=== PATIENT | female | born 1970 | race Caucasian/White ===

== ENCOUNTER 2017-11-04 17:36 | Emergency (ER) | payer BC, OTHER ==
[~2017-11-04] VITALS: Ht 172.7 cm; Wt 77.1 kg
[~2017-11-04 17:36] MED LIST: ACHD5005 PO; CYCL10TA9 PO; HYDR-757 PO; IBUP-1773 PO; KETO75CA PO; NAPR-243 PO; NAPR220T29 PO; TR5C15 TOP; TRAM50TA2 PO; [UNRECOGNIZED DRUG - OTHER] TP
--- NOTE | 2017-11-04 18:17 | ED GU-Female ---
General Chief Complaint: -Female Stated Complaint: MENSTRAL BLEEDING FOR 1 MONTH Source: patient Exam Limitations: no limitations History of Present Illness Date Seen by Provider: Nov 04, 2017 Time Seen by Provider: 17:57 Initial Comments Patient presents to ER by private conveyance with a chief complaint the past month now she has been on her period with moderate to heavy flow. She has known history of endometrial hyperplasia and a couple years ago Dr. Hopkins, [employer] did a endometrial ablation. She says things were doing much better until more recently in the last couple months she's been having a lot longer menstrual cycles. She says she is not having any chest pain or shortness of breath however she is having some pale colored skin, tingling a little bit of numbness in her fingers. She is afraid that her blood may be getting low. She did put on oral iron 8 tablets of ferrous sulfate daily but she is only taking about 3 tablets as this is all she can tolerate. Patient does not have any diarrhea, constipation or nausea and vomiting. She is using stool softeners. She has rescheduled her appointment with the [employer] for early next week on Wednesday and has plans to do some more blood work and ultrasound. Before her previous ablation her hemoglobin got down to 6.6 but she never received a transfusion of blood at that time. Allergies and Home Medications Allergies Coded Allergies: No Known Drug Allergies (Unverified , 08/28/10) Home Medications Hydrocodone Bit/Acetaminophen 1 Each Tablet, 1 EA PO Q4H PRN for MILD PAIN Prescribed by: KIRILL ALMONTE on 04/26/14 1023 Ibuprofen 600 Mg Tablet, 600 MG PO Q6H Prescribed by: KIRILL ALMONTE on 04/26/14 1023 Patient Home Medication List Home Medication List Reviewed: Yes Constitutional: No chills, No diaphoresis EENTM: No nose congestion, No throat pain, No throat swelling Respiratory: No short of breath, No wheezing Cardiovascular: No chest pain, No edema, No syncope, No vascular heart diseas Gastrointestinal: No abdominal pain, No constipation, No diarrhea, No nausea Genitourinary: denies discharge, denies dysuria : No Musculoskeletal: No back pain, No joint pain Skin: No pruritus, No rash Psychiatric/Neurological: Denies Headache, Denies Numbness, Denies Paresthesia Past Alfwqlz-Hepfxz-Oustct Hx Patient Social History Alcohol Use: Denies Use Recreational Drug Use: No Smoking Status: Never a Smoker Recent Foreign Travel: No Contact w/Someone Who Travel: No Reproductive System Hx Reproductive Disorders: Yes (DYSFUNCTIONAL BLEEDING, CYSTS) 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 Physical Exam Vital Signs Vital Signs - First Documented 11/04/17 18:00 Temp 97.2 Pulse 97 Resp 18 B/P (MAP) 131/74 (93) Pulse Ox 96 Capillary Refill : General Appearance: WD/WN, no apparent distress HEENT: PERRL/EOMI, TMs normal, pharynx normal Neck: supple, normal inspection Cardiovascular: normal peripheral pulses, regular rate, rhythm Respiratory: lungs clear, normal breath sounds, no respiratory distress, no accessory muscle use Gastrointestinal: normal bowel sounds, non tender, soft, no organomegaly Neurologic/Psychiatric: alert, oriented x 3 Skin: warm/dry, pallor Progress/Results/Core Measures Suspected Sepsis SIRS Temperature: Pulse: Respiratory Rate: Laboratory Tests 11/04/17 18:10: White Blood Count 5.2 Blood Pressure / Mean: Laboratory Tests 11/04/17 18:10: Creatinine 0.77, Platelet Count 274, Total Bilirubin 0.2 Results/Orders Lab Results Laboratory Tests Test 11/04/17 18:10 Range/Units White Blood Count 5.2 4.3-11.0 10^3/uL Red Blood Count 3.30 L 4.35-5.85 10^6/uL Hemoglobin 8.0 L 11.5-16.0 G/DL Hematocrit 27 L 35-52 % Mean Corpuscular Volume 82 80-99 FL Mean Corpuscular Hemoglobin 24 L 25-34 PG Mean Corpuscular Hemoglobin Concent 30 L 32-36 G/DL Red Cell Distribution Width 23.9 H 10.0-14.5 % Platelet Count 274 130-400 10^3/uL Mean Platelet Volume 10.0 7.4-10.4 FL Neutrophils (%) (Auto) 67 42-75 % Lymphocytes (%) (Auto) 25 12-44 % Monocytes (%) (Auto) 6 0-12 % Eosinophils (%) (Auto) 1 0-10 % Basophils (%) (Auto) 1 0-10 % Neutrophils # (Auto) 3.5 1.8-7.8 X 10^3 Lymphocytes # (Auto) 1.3 1.0-4.0 X 10^3 Monocytes # (Auto) 0.3 0.0-1.0 X 10^3 Eosinophils # (Auto) 0.1 0.0-0.3 10^3/uL Basophils # (Auto) 0.0 0.0-0.1 10^3/uL Sodium Level 137 135-145 MMOL/L Potassium Level 4.0 3.6-5.0 MMOL/L Chloride Level 108 H 98-107 MMOL/L Carbon Dioxide Level 18 L 21-32 MMOL/L Anion Gap 11 5-14 MMOL/L Blood Urea Nitrogen 12 7-18 MG/DL Creatinine 0.77 0.60-1.30 MG/DL Estimat Glomerular Filtration Rate > 60 BUN/Creatinine Ratio 16 Glucose Level 108 H 70-105 MG/DL Calcium Level 8.6 8.5-10.1 MG/DL Total Bilirubin 0.2 0.1-1.0 MG/DL Aspartate Amino Transf (AST/SGOT) 13 5-34 U/L Alanine Aminotransferase (ALT/SGPT) 22 0-55 U/L Alkaline Phosphatase 42 40-136 U/L Total Protein 6.3 L 6.4-8.2 GM/DL Albumin 4.2 3.2-4.5 GM/DL Serum Test, Qualitative NEGATIVE NEGATIVE My Orders Orders - ERNESTO MARTINS Cbc With Automated Diff (11/04/17 18:01) Comprehensive Metabolic Panel (11/04/17 18:01) Hcg,Qualitative Serum (11/04/17 18:01) Vital Signs/I&O Vital Sign - Last 12Hours 11/04/17 18:00 Temp 97.2 Pulse 97 Resp 18 B/P (MAP) 131/74 (93) Pulse Ox 96 Capillary Refill : Departure Impression Impression: Primary Impression: Abnormal uterine bleeding unrelated to menstrual cycle Disposition: HOME, SELF-CARE Condition: Stable Departure-Patient Inst. Decision time for Depature: 18:53 Referrals: ALIA BELLE (PCP) Primary Care Physician [facility] (Family) Primary Care Physician Patient Instructions: Heavy Periods (DC) Add. Discharge Instructions: If the bleeding becomes worse, he began to have chest pain, shortness of breath or other worrisome symptoms please return to the ER for further evaluation. However plan to follow-up at your scheduled appointment with Dr. Lonnie Archuleta for further evaluation and management. All discharge instructions reviewed with patient and/or family. Voiced understanding. Copy Copies To 1: RAMANA MCNAMARA TITUS J Nov 04, 2017 18:17
[2017-11-04 18:21] LABS: BASOPHILS % (AUTO) 1 % (0-10); EOSINOPHILS # (AUTO) 0.1 10^3/uL (0.0-0.3); EOSINOPHILS % (AUTO) 1 % (0-10); HEMATOCRIT 27 % (35-52); LYMPHOCYTES # (AUTO) 1.3 X 10^3 (1.0-4.0); LYMPHOCYTES % (AUTO) 25 % (12-44); MEAN CORPUSCULAR HEMOGLOBIN 24 PG (25-34); MEAN CORPUSCULAR HGB CONC 30 G/DL (32-36); MEAN CORPUSCULAR VOLUME 82 FL (80-99); MONOCYTES # (AUTO) 0.3 X 10^3 (0.0-1.0); MONOCYTES % (AUTO) 6 % (0-12); NEUTROPHILS # (AUTO) 3.5 X 10^3 (1.8-7.8); NEUTROPHILS % (AUTO) 67 % (42-75); PLATELET COUNT 274 10^3/uL (130-400); RED CELL DISTRIBUTION WIDTH 23.9 % (10.0-14.5); WHITE BLOOD COUNT 5.2 10^3/uL (4.3-11.0)
[2017-11-04 18:42] LABS: ALANINE AMINOTRANSFERASE 22 U/L (0-55); ALBUMIN 4.2 GM/DL (3.2-4.5); ALKALINE PHOSPHATASE 42 U/L (40-136); BILIRUBIN,TOTAL 0.2 MG/DL (0.1-1.0); BUN/CREATININE RATIO 16; CALCIUM 8.6 MG/DL (8.5-10.1); CARBON DIOXIDE 18 MMOL/L (21-32); CHLORIDE 108 MMOL/L (98-107); CREATININE SERUM 0.77 MG/DL (0.60-1.30); GFR ESTIMATED > 60; GLUCOSE 108 MG/DL (70-105); SODIUM 137 MMOL/L (135-145); TOTAL PROTEIN 6.3 GM/DL (6.4-8.2)
[2017-11-04 19:01] VITALS: BP 118/82
== END 2017-11-04 19:01 | disposition home or self-care (01) ==
LOC: EDUNIT# 17:36 → ER 17:37
DX: N93.9 Abnormal uterine and vaginal bleeding, unspecified (principal); Z87.448 Personal history of other diseases of urinary system
CPT/HCPCS: 36415; 80053; 84703; 85025; 99282

== ENCOUNTER 2017-11-17 12:54 | Outpatient (CLI) | payer BC ==
[~2017-11-17] VITALS: Ht 172.7 cm; Wt 80.3 kg
[2017-11-17 13:04] VITALS: BP 112/67
[2017-11-17] MEDS ORDERED: NITR100C PO (13:09)
[2017-11-17] MEDS ORDERED: DOCU-143 PO (13:29)
[2017-11-17] MEDS ORDERED: FERR-84 PO (13:29)
[2017-11-17] MEDS ORDERED: C250T PO (13:29)
== END 2017-11-17 13:20 | disposition home or self-care (01) ==
LOC: PREOP 12:54
PROVIDERS: ATTEND Obstetrics & Gynecology
DX: Z01.818 Encounter for other preprocedural examination (principal); Z11.2 Encounter for screening for other bacterial diseases; N93.8 Other specified abnormal uterine and vaginal bleeding; D25.9 Leiomyoma of uterus, unspecified; D64.9 Anemia, unspecified
CPT/HCPCS: 87081

== ENCOUNTER 2017-11-22 12:05 | Day surgery (SDC) | payer BC ==
[~2017-11-22] VITALS: Ht 172.7 cm; Wt 80.3 kg
[2017-11-22 12:05] VITALS: BP 131/98
[~2017-11-22 12:05] MED LIST changes: +C250T PO; +DOCU-143 PO; +FERR-84 PO; +NITR100C PO
[2017-11-22] MEDS ORDERED: ceFAZolin INJECTION 1,000 MG in NS (IVPB) 100 ML IV ONE (12:15)
--- NOTE | 2017-11-22 12:24 | Progress Note-Pre Operative ---
Pre-Operative Progress Note H&P Reviewed The H&P was reviewed, patient examined and no changes noted. Date Seen by Provider: Nov 22, 2017 Time Seen by Provider: 13:52 Date H&P Reviewed: Nov 22, 2017 Time H&P Reviewed: 13:52 Pre-Operative Diagnosis: DUB/menorrhagia DIMITRIOS JIMENEZ MD Nov 22, 2017 12:24 pm
--- NOTE | 2017-11-22 12:25 | Progress Note-Post Operative ---
Post-Operative Progess Note Surgeon (s)/Special Education Classroom Aide (s) Surgeon DIMITRIOS JIMENEZ MD Special Education Classroom Aide: Adriana Bautista Pre-Operative Diagnosis DUB/menorrhagia Post-Operative Diagnosis Same with pathology pending Procedure & Operative Findings Date of Procedure 11/22/17 Procedure Performed/Findings TL H with bilateral salpingectomy Anesthesia Type GETA Estimated Blood Loss Estimated blood loss (mL): min Specimens/Packing Specimens Removed Uterus and fallopian tubes Packing: None DIMITRIOS JIMENEZ MD Nov 22, 2017 12:25
[2017-11-22] MEDS ORDERED: IBUP-1780 PO (12:29)
[2017-11-22] MEDS ORDERED: OXYC-465 PO (12:29)
[2017-11-22] MEDS ORDERED: DOCU-143 PO (12:29)
[2017-11-22] MEDS ORDERED: MEPERIDINE (DEMEROL) INJ 100 MG/ML IM PRN (12:30)
[2017-11-22] MEDS ORDERED: oxyCODONE/APAP 10/325MG (PERCOCET 10) TABLET PO PRN (12:30)
[2017-11-22] MEDS ORDERED: ONDANSETRON 4 MG/2 ML (SDV) Z0FRAN IVP PRN ×2 (12:30→16:45)
[2017-11-22] MEDS ORDERED: PROMETHAZINE INJ 25 MG/ML (PHENERGAN) AMP IM PRN (12:30)
--- NOTE | 2017-11-22 12:30 | Discharge Instructions ---
Discharge Instructions Discharge Medications New, Converted or Re-Newed RX: RX on Chart Patient Instructions Patient Instructions: As directed Return to The Hospital For: As directed Activity & Diet Discharge Diet: No Restrictions Activity as Tolerated: No Orders-Post D/C & Referrals Follow Up Appt: Return to clinic on , November 25, 2017 at 930 a.m. for staple removal Call to make follow up appt. for patient in 4 weeks. Activity: Rest for 24 hours, than as tolerated. Wound Care: May remove Band-Aid tomorrow. Replace as desired. Keep incisions clean and dry. Wash daily with soap and water. Please call in RX to patient pharmacy. Diet: As tolerated-Clear Liquids only if nauseated. May shower or tub bathe as desired. No driving for 24 hours, no alcoholic beverages for 24 hours, and nothing per vagina (no tampons, douching, or intercourse) for 8 weeks. Patient to return to the clinic as soon as possible for: Temperature greater than 101F, Severe Pain, Foul discharge from incision or vagina, Excessive Bleeding (more than a period). DIMITRIOS JIMENEZ MD Nov 22, 2017 12:30 pm
[2017-11-22 12:37] LABS: BASOPHILS % (AUTO) 0 % (0-10); EOSINOPHILS # (AUTO) 0.1 10^3/uL (0.0-0.3); EOSINOPHILS % (AUTO) 1 % (0-10); HEMATOCRIT 36 % (35-52); HEMOGLOBIN 11.6 G/DL (11.5-16.0); LYMPHOCYTES # (AUTO) 1.4 X 10^3 (1.0-4.0); LYMPHOCYTES % (AUTO) 21 % (12-44); MEAN CORPUSCULAR HEMOGLOBIN 27 PG (25-34); MEAN CORPUSCULAR HGB CONC 32 G/DL (32-36); MEAN CORPUSCULAR VOLUME 84 FL (80-99); MEAN PLATELET VOLUME 11.3 FL (7.4-10.4); MONOCYTES # (AUTO) 0.7 X 10^3 (0.0-1.0); MONOCYTES % (AUTO) 10 % (0-12); NEUTROPHILS # (AUTO) 4.5 X 10^3 (1.8-7.8); NEUTROPHILS % (AUTO) 68 % (42-75); PLATELET COUNT 234 10^3/uL (130-400); RED BLOOD COUNT 4.33 10^6/uL (4.35-5.85); RED CELL DISTRIBUTION WIDTH 22.4 % (10.0-14.5); WHITE BLOOD COUNT 6.7 10^3/uL (4.3-11.0)
[2017-11-22] MEDS: LACTATED RINGERS 1,000 ML IV PRN ×3 (13:03→16:41)
[2017-11-22] MEDS ORDERED: BUP/EPI 0.5% 1:200,000 (SENSORCAINE) 30 ML VIAL ONE (13:55)
[2017-11-22] MEDS ORDERED: MIDAZOLAM 2 MG/2 ML (VERSED) VIAL ONE (13:58)
[2017-11-22] MEDS ORDERED: fentaNYL INJECTION 250 MCG/5 ML AMP ONE (13:58)
[2017-11-22] MEDS ORDERED: LIDOCAINE JELLY 2% (XYLOCAINE) 5 ML TUBE ONE (13:59)
[2017-11-22] MEDS ORDERED: LIDOCAINE PF 2% 5 ML (XYLOCAINE) VIAL ONE (13:59)
[2017-11-22] MEDS ORDERED: proPOfol 200 MG/20 ML (DIPRIVAN) VIAL IV ONE (13:59)
[2017-11-22] MEDS ORDERED: morphine INJ 10 MG/ML 1ML (SYR OR VIAL) ONE (15:22)
[2017-11-22] MEDS ORDERED: HYDROmorphone (DILAUDID) 2 MG/ML VIAL ONE (15:22)
[2017-11-22] MEDS ORDERED: ROCURONIUM 10 MG/ML 5 ML SYRINGE IV ONE (15:25)
[2017-11-22] MEDS ORDERED: FLUMAZENIL (ROMAZICON) 0.1 MG/ML 5 ML VIAL ONE (15:25)
[2017-11-22] MEDS ORDERED: DEXAMETHASONE 10 MG/ML (DECADRON) 1 ML VIAL ONE (15:26)
[2017-11-22] MEDS ORDERED: fentaNYL INJECTION 100 MCG/2 ML AMP ONE (16:03)
[2017-11-22] MEDS ORDERED: GLYCOPYRROLATE 0.2 MG/ML (ROBINUL) 2 ML VIAL ONE (16:04)
[2017-11-22] MEDS ORDERED: NEOSTIGMINE 1 MG/ML 5 ML SYRINGE ONE (16:04)
[2017-11-22] MEDS ORDERED: SEVOFLURANE (ULTANE) 15 ML INHAL SOLN ONE (16:19)
[2017-11-22] MEDS ORDERED: LACTATED RINGERS 1,000 ML IV ONE (16:30)
[2017-11-22] MEDS: KETOROLAC 30 MG/ML VIAL IVP SCH (16:35)
[2017-11-22] MEDS ORDERED: HYDROmorphone (DILAUDID) 2 MG/ML VIAL IVP PRN (16:45)
[2017-11-22] MEDS: morphine INJ 10 MG/ML 1ML (SYR OR VIAL) IVP PRN ×3 (16:46→17:00)
[2017-11-22 17:30] VITALS: BP 113/72
[2017-11-22] MEDS ORDERED: D5 LR IV SOLUTION 1,000 ML IV ONE (17:45)
[2017-11-22] MEDS: D5 LR IV SOLUTION 1,000 ML IV SCH (17:54)
[2017-11-22 20:20] VITALS: BP 115/69
--- NOTE | 2017-11-22 23:14 | OPERATIVE REPORT ---
DATE OF SERVICE: 11/22/2017 PREOPERATIVE DIAGNOSES: Dysfunctional uterine bleeding to the point of anemia and menorrhagia. POSTOPERATIVE DIAGNOSES: Dysfunctional uterine bleeding to the point of anemia and menorrhagia, omental adhesions to the anterior abdominal wall. OPERATIVE PROCEDURE: Total laparoscopic hysterectomy with bilateral salpingectomy, adhesiolysis. OPERATIVE DESCRIPTION: With the patient in the supine position under satisfactory general anesthesia, she repositioned in dorsal lithotomy position in the [facility] and prepped and draped in the usual fashion for abdominal and vaginal surgery. The urinary bladder was drained via Adams catheter to dependent drainage. Weighted speculum placed in the posterior fornix of the vagina. Cervix exposed and grasped anteriorly with single tooth tenaculum. Uterus was sounded to 13 cm with uterine sound. The cervix was then serially dilated with Bret dilators to accommodate a Mamie II manipulator, which was placed with an 8 cm uterine probe and a 35 mm colpotomy ring. Sutures of #1 Vicryl placed at 3 o'clock and 9 o'clock position of the cervix to affix the uterus the uterus to the manipulator. The patient was brought in low dorsal lithotomy position. A 12 mm incision made 5 cm superior to the umbilicus. A stab wound was made in the superior margin of the umbilicus. Veress needle was placed through the stab wound into the abdominal cavity and correct placement was confirmed with water drop test. The abdomen insufflated with 2.4 liters of carbon dioxide then the Veress needle was removed and a 12 mm Optiview laparoscopic port was placed. The patient had had a previous infraumbilical laparoscopy incision. There were extensive adhesions of the omentum to the mid abdominal wall extending laterally to the point where vision into the pelvis was completely obscured. The laparoscope could be rotated. The side sotomayor of the abdomen were clearly visible. Ports of 8 mm were placed, 9 cm lateral to the umbilicus at the level of the umbilicus through incisions of those sizes under direct vision. A monopolar shear was then introduced through the left lateral port and the adhesions that were involving the omentum to the anterior abdominal wall were taken down with very careful and meticulous dissection to free the adhesions allowed the omentum to the drop out of the field of view. With the omentum freed, the patient was placed in Trendelenburg allow the bowels above the pelvis. The operative instruments were inserted and the ports after the manipulator was attached. I retired to the console. Using a vessel sealer on the right and a bipolar fenestrated grasper on the left, the pelvis was first examined. The patient had had a remote tubal sterilization as evidenced by the mid 3rd of the fallopian tube in surgically absent. The distal fallopian tube was present, was normal appearing. The ovaries were quite atretic appearing, but otherwise normal. The laparoscope was rotated. The appendix was identified. It was a normal vermiform appendix. Laparoscope was brought back to the pelvis. The uterus was quite large with a very large anterior fundal mass consistent with a fibroid pathology is pending on the surgical specimen. The uterus was otherwise quite mottled in appearance consistent with adenomyosis as well. The intended procedure was then initiated by first bringing up the distal portion of the fallopian tube on the right, clamping, cauterizing and dividing the mesosalpinx with the vessel sealer and the continuing that to the side of the uterus and then the uteroovarian pedicle and round ligament were clamped, cauterized and divided. The broad ligament was treated in the same manner as was the cardinal ligament. Same procedure performed on the left, allowing for removal of both fallopian tubes eventually with the uterus. The anterior lower uterine segment was somewhat difficult to see secondary to the large anterior fundal fibroid, but with manipulation, the lower uterine segment could be completely seen and the anterior lower uterine segment peritoneum was divided with monopolar shear allowing the bladder to be dissected down off the lower uterine segment. The anterior colpotomy incision was made onto the colpotomy ring with the monopolar shear. That incision was continued circumferentially until the entire colpotomy ring was exposed allowing for then removal of the uterus with the fallopian tube still attached through the vagina. This was done with little bit of manipulation secondary to the large nature of the uterus. With the uterus removed, there was no significant bleeding, other than the expected oozing along the vaginal cuff. The vaginal cuff was closed using 3 V-Loc barbed sutures starting first on the right angle then from the left angle and then the mid portion with the third suture. When the angles of the vagina were closed, the care was taken to ensure inclusion of the pedicles of the multiple uterine vessels to ensure hemostasis. The vaginal cuff was peritonealized with the last couple of stitches from the 3rd suture bringing the peritoneum back down onto the cuff. Good reapproximation was achieved as was a good hemostasis. Both ureters seemed to peristalse before, during and after the completion of the operative procedures. With the procedure complete and no remaining abnormal pathology, the operative instruments were removed under direct vision as were the ports. The abdomen was evacuated of the insufflating gas in the process of removing the ports. The skin incisions were stapled after closing the fascia at the supraumbilical incision with a [id number] suture of 2-0 Vicryl. The vagina was examined and placed a speculum inside and seen that the vaginal cuff was completely reapproximated and completely hemostatic. Sponge and needle counts were correct on completion of the procedure. Estimated blood loss was minimal. The patient tolerated the procedure well and was uneventfully awakened from her general anesthesia and transferred to the recovery room in stable condition. Job ID: [id number] DocumentID: [id number] Dictated Date: 11/22/2017 16:13:47 Hemodialysis Rn Date: 11/22/2017 23:13:55 Dictated By: DIMITRIOS JIMENEZ MD
[2017-11-23 00:05] VITALS: BP 103/68
[2017-11-23] MEDS: D5 LR IV SOLUTION 1,000 ML IV SCH (01:36)
[2017-11-23 04:10] VITALS: BP 100/58
[2017-11-23] MEDS: KETOROLAC 30 MG/ML VIAL IVP SCH (05:17)
--- NOTE | 2017-11-23 07:14 | Anesthesia-General Post-Op ---
General Patient Condition Mental Status/LOC: Same as Preop Cardiovascular: Satisfactory Nausea/Vomiting: Absent Respiratory: Satisfactory Pain: Controlled Complications: Absent Post Op Complications Complications None Follow Up Care/Instructions Patient Instructions None needed. Anesthesia/Patient Condition Patient Condition Patient is doing well, no complaints, stable vital signs, no apparent adverse anesthesia problems. No complications reported per nursing. DONALD ELISE CRNA Nov 23, 2017 07:14
[2017-11-23 08:00] VITALS: BP 91/57
--- NOTE | 2017-11-23 08:21 | Progress Note-Standard ---
Standard Progress Note Progress Notes/Assess & Plan Date Seen by Provider: Nov 23, 2017 Time Seen by Provider: 08:20 Progress/Assessment & Plan This patient is without complaints she is ambulating, voiding, tolerating by mouth well, has good pain control. Patient is requesting discharge home. Vital Signs Date Time Temp Pulse Resp B/P (MAP) Pulse Ox O2 Delivery O2 Flow Rate FiO2 11/23/17 04:10 96.9 59 16 100/58 (72) 98 Room Air 11/23/17 00:05 98.2 63 16 103/68 (80) 97 Room Air 11/22/17 21:07 Room Air 11/22/17 20:20 98.4 72 16 115/69 (84) 99 Room Air 11/22/17 17:30 97.4 60 15 113/72 (86) 97 Room Air 11/22/17 12:05 97.9 70 16 131/98 (109) 96 Room Air I & O 11/23/17 07:00 Intake Total 4050 ml Output Total 1600 ml Balance 2450 ml Vital signs are stable. Patient afebrile. Fundus is firm below the umbilicus and nontender. Extremities show no clubbing cyanosis. There is no Homans sign. Assessment and plan most day number 1 doing well. Plan is for discharge home today or tomorrow as the patient prefers Final Diagnosis Term spontaneous vaginal delivery DIMITRIOS JIMENEZ MD Nov 23, 2017 8:21 am
--- NOTE | 2017-11-23 08:23 | Progress Note-Standard ---
Standard Progress Note Progress Notes/Assess & Plan Date Seen by Provider: Nov 23, 2017 Time Seen by Provider: 08:22 Progress/Assessment & Plan This patient is without complaint. She is ambulating, voiding, tolerating a period Vital Signs Date Time Temp Pulse Resp B/P (MAP) Pulse Ox O2 Delivery O2 Flow Rate FiO2 11/23/17 04:10 96.9 59 16 100/58 (72) 98 Room Air 11/23/17 00:05 98.2 63 16 103/68 (80) 97 Room Air 11/22/17 21:07 Room Air 11/22/17 20:20 98.4 72 16 115/69 (84) 99 Room Air 11/22/17 17:30 97.4 60 15 113/72 (86) 97 Room Air 11/22/17 12:05 97.9 70 16 131/98 (109) 96 Room Air I & O 11/23/17 07:00 Intake Total 4050 ml Output Total 1600 ml Balance 2450 ml Vital signs are stable. Patient afebrile. Abdomen is benign. Extremities show no clubbing cyanosis. There is no Homans sign. Assessment and plan postoperative day number 1 doing well. Plan is for discharge home today or tomorrow as the patient prefers Final Diagnosis FLORENCIO/menorrhagia DIMITRIOS JIMENEZ MD Nov 23, 2017 8:23 am
[2017-11-23] MEDS ORDERED: DOCUSATE SODIUM 100 MG (COLACE) CAP PO SCH (09:00)
[2017-11-23] MEDS ORDERED: IBUPROFEN 800 MG (MOTRIN) TAB PO SCH (18:00)
== END 2017-11-23 11:25 | disposition home or self-care (01) ==
LOC: SDC 12:05 → WS 17:30 → SDC 11-23 11:25
PROVIDERS: ATTEND Obstetrics & Gynecology
DX: N84.0 Polyp of corpus uteri (principal); D64.9 Anemia, unspecified; D25.1 Intramural leiomyoma of uterus; N83.8 Other noninflammatory disorders of ovary, fallopian tube and broad ligament; N80.2 Endometriosis of fallopian tube
CPT/HCPCS: 36415; 84703; 85025; 86850; 86900; 86901; 94664

== ENCOUNTER → 2018-02-02 | Outpatient (CLI) | payer BC, OTHER ==
[~2018-02-02] MED LIST changes: +IBUP-1780 PO; +OXYC-465 PO
--- NOTE | 2018-02-02 13:33 | Diagnostic Imaging Report ---
INDICATION: Pelvic pain for 10 weeks. Patient is status post hysterectomy. TECHNIQUE: Multiple real-time grayscale images were obtained of the pelvis in various projections endovaginally. Transabdominal imaging was also performed. FINDINGS: The uterus is surgically absent. The right ovary measures 2.4 x 2.8 x 1.7 cm and the left ovary measures 4.8 x 2.4 x 3.1 cm. The left ovary does contain a 2.3 x 2.2 cm cyst with some internal complexity suggestive of a hemorrhagic cyst. There is also a 1.5 cm left ovarian cyst. Right ovary contains a 1.7 cm cyst. No free fluid is seen. IMPRESSION: Status post hysterectomy. There are bilateral ovarian cysts, largest on the left which is slightly complex measuring 2.3 cm. Dictated by: Dictated on workstation # [id number]
== END ==
LOC: RAD 12:00
PROVIDERS: ATTEND Nurse Practitioner Family
DX: N83.292 Other ovarian cyst, left side (principal); N83.291 Other ovarian cyst, right side; Z90.710 Acquired absence of both cervix and uterus
CPT/HCPCS: 76830; 76856

== ENCOUNTER → 2018-02-21 | Outpatient (CLI) | payer BC ==
[~2018-02-21] MED LIST changes: +CATHETER FLUSH 10 ML SYR IV PRN; +IOHEXOL 350 MG/ML 100 ML (OMNIPAQUE 350) VIAL IV ONE; +NS 100 ML (IVPB) BAG IV ONE
--- NOTE | 2018-02-21 15:22 | Diagnostic Imaging Report ---
PROCEDURE: CT abdomen and pelvis with contrast. TECHNIQUE: Multiple contiguous axial images were obtained through the abdomen and pelvis after administration of intravenous contrast. INDICATION: Left upper quadrant and left lower quadrant pain. Comparison is made with prior CT from 04/03/2014. The lung bases are clear. No discrete liver mass is identified. Gallbladder appears to be contracted. The pancreas and spleen are unremarkable. No adrenal masses detected. The kidneys are unremarkable. Aorta is nonaneurysmal. No central, retroperitoneal or mesenteric lymphadenopathy is seen. The small and large bowel loops are normal caliber. No obstruction is seen. There is no ascites. Appendix is unremarkable. Bladder is unremarkable. No inflammatory process is seen. IMPRESSION: Unremarkable CT of the abdomen and pelvis. No acute features detected. Dictated by: Dictated on workstation # [id number]
== END ==
LOC: RAD 14:44
PROVIDERS: ATTEND Nurse Practitioner Family
DX: R10.12 Left upper quadrant pain (principal); R10.32 Left lower quadrant pain
CPT/HCPCS: 74177

== ENCOUNTER 2018-03-11 09:42 | Outpatient (CLI) | payer BC ==
[~2018-03-11] VITALS: Ht 172.7 cm; Wt 80.3 kg
[~2018-03-11 09:42] MED LIST changes: -CATHETER FLUSH 10 ML SYR IV PRN; -IOHEXOL 350 MG/ML 100 ML (OMNIPAQUE 350) VIAL IV ONE; -NS 100 ML (IVPB) BAG IV ONE
[2018-03-11] MEDS ORDERED: MULT-178 PO (10:18)
[2018-03-14] MEDS ORDERED: OXYC-197 PO (12:45)
== END 2018-03-11 10:25 ==
LOC: PREOP 09:42
PROVIDERS: ATTEND Obstetrics & Gynecology
DX: Z01.818 Encounter for other preprocedural examination (principal); R10.2 Pelvic and perineal pain; N80.9 Endometriosis, unspecified

== ENCOUNTER 2018-03-14 11:17 | Day surgery (SDC) | payer BC ==
[~2018-03-14] VITALS: Ht 172.7 cm; Wt 80.3 kg
[~2018-03-14 11:17] MED LIST changes: +BUP/EPI 0.5% 1:200,000 (SENSORCAINE) 30 ML VIAL ONE; +MULT-178 PO
[2018-03-14 11:30] VITALS: BP 109/77
[2018-03-14] MEDS ORDERED: ceFAZolin INJECTION 1,000 MG in NS (IVPB) 50 ML IV ONE (11:30)
[2018-03-14] MEDS ORDERED: proPOfol 200 MG/20 ML (DIPRIVAN) VIAL IV ONE ×2 (11:37→11:48)
[2018-03-14] MEDS ORDERED: SEVOFLURANE (ULTANE) 15 ML INHAL SOLN ONE ×2 (11:37→11:48)
[2018-03-14] MEDS ORDERED: LIDOCAINE PF 2% 5 ML (XYLOCAINE) VIAL ONE ×2 (11:37→11:48)
[2018-03-14] MEDS: LACTATED RINGERS 1,000 ML IV PRN ×2 (11:40→13:18)
[2018-03-14 11:46] LABS: BASOPHILS % (AUTO) 0 % (0-10); EOSINOPHILS # (AUTO) 0.1 10^3/uL (0.0-0.3); EOSINOPHILS % (AUTO) 1 % (0-10); HEMATOCRIT 40 % (35-52); HEMOGLOBIN 13.6 G/DL (11.5-16.0); LYMPHOCYTES # (AUTO) 1.6 X 10^3 (1.0-4.0); LYMPHOCYTES % (AUTO) 28 % (12-44); MEAN CORPUSCULAR HEMOGLOBIN 30 PG (25-34); MEAN CORPUSCULAR HGB CONC 34 G/DL (32-36); MEAN CORPUSCULAR VOLUME 87 FL (80-99); MEAN PLATELET VOLUME 10.8 FL (7.4-10.4); MONOCYTES # (AUTO) 0.5 X 10^3 (0.0-1.0); MONOCYTES % (AUTO) 8 % (0-12); NEUTROPHILS # (AUTO) 3.5 X 10^3 (1.8-7.8); NEUTROPHILS % (AUTO) 63 % (42-75); PLATELET COUNT 224 10^3/uL (130-400); RED BLOOD COUNT 4.59 10^6/uL (4.35-5.85); RED CELL DISTRIBUTION WIDTH 15.3 % (10.0-14.5); WHITE BLOOD COUNT 5.7 10^3/uL (4.3-11.0)
[2018-03-14] MEDS ORDERED: ATRACURIUM 50 MG/5 ML (TRACRIUM) IV ONE ×3 (11:47→13:45)
[2018-03-14] MEDS ORDERED: DEXAMETHASONE 10 MG/ML (DECADRON) 1 ML VIAL ONE (11:48)
[2018-03-14] MEDS ORDERED: HURRICAINE EXT TUBE (BENZOCAINE) ONE (11:48)
[2018-03-14] MEDS ORDERED: fentaNYL INJECTION 100 MCG/2 ML AMP ONE (11:48)
[2018-03-14] MEDS ORDERED: LACTATED RINGERS 1,000 ML IV ONE (11:48)
[2018-03-14] MEDS ORDERED: MIDAZOLAM 2 MG/2 ML (VERSED) VIAL ONE (11:49)
--- NOTE | 2018-03-14 12:42 | Progress Note-Pre Operative ---
Pre-Operative Progress Note H&P Reviewed The H&P was reviewed, patient examined and no changes noted. Date Seen by Provider: Mar 14, 2018 Time Seen by Provider: 12:42 Date H&P Reviewed: Mar 14, 2018 Time H&P Reviewed: 12:42 Pre-Operative Diagnosis: Severe ovarian/chronic pelvic pain DIMITRIOS JIMENEZ MD Mar 14, 2018 12:42 pm
[2018-03-14] MEDS ORDERED: D5 LR IV SOLUTION 1,000 ML IV SCH (12:43)
--- NOTE | 2018-03-14 12:43 | Progress Note-Post Operative ---
Post-Operative Progess Note Surgeon (s)/Fire Eater (s) Surgeon DIMITRIOS JIMENEZ MD Fire Eater: Tracy Pre-Operative Diagnosis Severe ovarian/chronic pelvic pain Post-Operative Diagnosis Same with endometriosis and with pathology pending Procedure & Operative Findings Date of Procedure 03/14/18 Procedure Performed/Findings Laparoscopic bilateral oophorectomy and for destruction of endometriosis implants Anesthesia Type GETA Estimated Blood Loss Estimated blood loss (mL): minimal Specimens/Packing Specimens Removed Right and left ovaries Packing: None DIMITRIOS JIMENEZ MD Mar 14, 2018 12:43
[2018-03-14] MEDS ORDERED: oxyCODONE/APAP 5/325MG (PERCOCET 5) TABLET PO PRN (12:45)
[2018-03-14] MEDS ORDERED: ESTROGENS CONJ IV 25 MG/5 ML (PREMARIN) VIAL IVP ONE (12:45)
[2018-03-14] MEDS ORDERED: PROMETHAZINE INJ 25 MG/ML (PHENERGAN) AMP IM ONE (12:45)
[2018-03-14] MEDS ORDERED: MEPERIDINE (DEMEROL) INJ 100 MG/ML IM ONE (12:45)
[2018-03-14] MEDS ORDERED: OXYC-197 PO (12:45)
[2018-03-14] MEDS ORDERED: KETOROLAC 30 MG/ML VIAL IVP ONE (12:45)
[2018-03-14] MEDS ORDERED: ONDANSETRON 4 MG/2 ML (SDV) Z0FRAN IVP PRN ×2 (12:45→14:15)
--- NOTE | 2018-03-14 12:47 | Discharge Instructions ---
Discharge Instructions Discharge Medications New, Converted or Re-Newed RX: RX on Chart Patient Instructions Patient Instructions: As directed Return to The Hospital For: As directed Activity & Diet Discharge Diet: No Restrictions Activity as Tolerated: Yes Orders-Post D/C & Referrals Follow Up Appt: Return to clinic in 1 week for suture removal Activity: Rest for 24 hours, than as tolerated. Wound Care: May remove Band-Aid tomorrow. Replace as desired. Keep incisions clean and dry. Wash daily with soap and water. Diet: As tolerated-Clear Liquids only if nauseated. May shower or tub bathe as desired. Patient to return to the clinic as soon as possible for: Temperature greater than 101F, Severe Pain, Foul discharge from incision or vagina, Excessive Bleeding (more than a period). DIMITRIOS JIMENEZ MD Mar 14, 2018 12:47 pm
[2018-03-14] MEDS ORDERED: BUP/EPI 0.5% 1:200,000 (SENSORCAINE) 30 ML VIAL INJ ONE (13:00)
[2018-03-14] MEDS ORDERED: NEOSTIGMINE 1 MG/ML 5 ML SYRINGE ONE (13:22)
[2018-03-14] MEDS ORDERED: GLYCOPYRROLATE 0.2 MG/ML (ROBINUL) 2 ML VIAL ONE (13:22)
[2018-03-14] MEDS ORDERED: morphine INJ 10 MG/ML 1ML (SYR OR VIAL) IVP PRN (13:45)
[2018-03-14] MEDS ORDERED: morphine INJ 10 MG/ML 1ML (SYR OR VIAL) ONE (13:55)
[2018-03-14] MEDS ORDERED: WATER (STERILE) FOR INJECTION 10 ML ONE (13:56)
[2018-03-14] MEDS ORDERED: D5 LR IV SOLUTION 1,000 ML IV ONE (13:57)
[2018-03-14] MEDS: morphine INJ 10 MG/ML 1ML (SYR OR VIAL) IVP PRN ×3 (13:58→14:12)
[2018-03-14] MEDS ORDERED: ONDANSETRON 4 MG/2 ML (SDV) Z0FRAN ONE (13:59)
[2018-03-14 14:45] VITALS: BP 127/80
[2018-03-14 14:46] VITALS: BP 127/80
[2018-03-14] MEDS ORDERED: oxyCODONE/APAP 5/325MG (PERCOCET 5) TABLET ONE (15:14)
[2018-03-14 15:15] VITALS: BP 125/73
[2018-03-14 15:45] VITALS: BP 115/78
[2018-03-14 17:46] VITALS: BP 115/78
--- NOTE | 2018-03-14 18:41 | OPERATIVE REPORT ---
DATE OF SERVICE: 03/14/2018 PREOPERATIVE DIAGNOSES: Chronic pelvic pain with severe left ovarian pain. POSTOPERATIVE DIAGNOSES: Chronic pelvic pain with severe left ovarian pain. OPERATIVE PROCEDURE: Laparoscopic bilateral oophorectomies and destruction of endometriosis implants. OPERATIVE DESCRIPTION: With the patient in the supine position and under satisfactory general anesthesia, she is repositioned in a low dorsal lithotomy position in the [facility] and prepped and draped in the usual fashion for abdominal and vaginal surgery. The urinary bladder was drained with a straight catheter. The vaginal vault was distended with a moistened Kerlix gauze. A 5 mm incision was made in the patient's left upper quadrant. A 12 mm incision in the inferior margin of the umbilicus and a 5 mm incision above the symphysis pubis. All three port sites were infiltrated with 0.25% Marcaine with epinephrine prior to incision. Veress needle was placed through the left upper quadrant incision. Correct placement confirmed with water drop test. The abdomen was insufflated with 2.4 liters of carbon dioxide and the Veress needle was removed and a 5 mm Optiview laparoscopic port placed under direct vision. The patient was placed in Trendelenburg. The abdominal wall was transilluminated. A 12 mm port was placed through the umbilical incision and a 5 mm port suprapubically. The bowel was spilled mostly up out of the pelvis where better sigmoid was remaining in the pelvis. It was drawn out with gentle traction exposing the pelvis completely. The right ovary was fairly atretic. The left ovary had evidence of fairly recent ovulation and had some implants that would be suspicious for endometriosis. Both ureters were seemed to peristalse well down below the ovary and the IP ligament. There were some implants in the ovarian fossae bilaterally that were consistent with endometriosis. The laparoscope was rotated. The appendix could not be seen. I am not sure whether this was surgically absent or just hid beyond bowel, but I did not make an effort to go beyond the pelvis in looking for the appendix. Attention was brought back to the pelvis. The right ovary was grasped and elevated. Endo-GERARDO was placed across the IP ligament across the mesovarium and fired. This severed the ovary from its attachment that is left lying in the pelvis. The left ovary was elevated and treated in the same manner. A single firing of the Endo-GERARDO it from its attachments. The Endobag was then placed through the umbilical port. Both ovaries were placed in the Endobag and that was brought out through the umbilical incision. The umbilical incision was extended slightly with blunt dilation with scissors to allow for removal of the specimen. The specimen was labeled appropriately right and left and sent to pathology for permanent section. The pelvis was examined for hemostasis, which was complete. The endometriosis implants in the ovarian fossae were touched with electrocautery to destroy them. With no further remaining abnormal pathology and no bleeding, the procedure was terminated. The operative instruments were removed under direct vision as were the ports. The abdomen was evacuated of the insufflating gas in the process of removing the ports. The skin incisions were closed with nylon interrupted sutures. The fascia at the umbilical incision was closed with qeqfvk-ey-yqcfk suture of 2-0 Vicryl. The Kerlix gauze was removed from the vagina. There was no bleeding from the vagina. Sponge and needle counts were correct. Estimated blood loss was minimal. The patient was now uneventfully awakened from her general anesthesia and transferred to the recovery room in stable condition with plans for discharge home PAR. Job ID: [id number] DocumentID: [id number] Dictated Date: 03/14/2018 13:34:29 Logger All Round Date: 03/14/2018 18:41:05 Dictated By: DIMITRIOS JIMENEZ MD
== END 2018-03-14 17:35 | disposition home or self-care (01) ==
LOC: SDC 11:17
PROVIDERS: ATTEND Obstetrics & Gynecology
DX: N83.201 Unspecified ovarian cyst, right side (principal); N83.202 Unspecified ovarian cyst, left side; N80.3 Endometriosis of pelvic peritoneum; R10.2 Pelvic and perineal pain
CPT/HCPCS: 36415; 85025; 87081

== ENCOUNTER → 2018-07-12 | Outpatient (CLI) | payer BC ==
[~2018-07-12] MED LIST changes: -BUP/EPI 0.5% 1:200,000 (SENSORCAINE) 30 ML VIAL ONE; +OXYC1TAB87 PO
--- NOTE | 2018-07-12 19:24 | Diagnostic Imaging Report ---
Indication: Routine screening. Comparison is made with prior mammograms from 07/06/2017 and 03/10/2016. 2-D and 3-D bilateral screening mammography was performed with CAD. Both breasts are heterogeneously dense, limiting the sensitivity of mammography. No mass or malignant-appearing microcalcifications are seen. The axillae are unremarkable. Impression: BI-RADS category 1. No mammographic features suspicious for malignancy are identified. Dictated by: Dictated on workstation # [id number]
== END ==
LOC: RAD 07:26
PROVIDERS: ATTEND Nurse Practitioner Primary Care
DX: Z12.31 Encounter for screening mammogram for malignant neoplasm of breast (principal)
CPT/HCPCS: 77067

== ENCOUNTER 2019-05-13 18:53 | Emergency (ER) | payer BC ==
[~2019-05-13] VITALS: Ht 172.7 cm; Wt 90.7 kg
[2019-05-13] MEDS ORDERED: THYR130T5 (19:09)
[2019-05-13] MEDS ORDERED: KETOROLAC 30 MG/ML VIAL IVP ONE (19:15)
--- NOTE | 2019-05-13 19:16 | ED Abdominal Pain ---
General Chief Complaint: Abdominal/GI Problems Stated Complaint: LEFT LOWER ABDOMINAL PAIN Source of Information: Patient Exam Limitations: No Limitations History of Present Illness Date Seen by Provider: May 13, 2019 Time Seen by Provider: 19:14 Initial Comments To ER with left lower quadrant abdominal pain/inguinal pain that seems to be worsened by food intake present for 5 months. She does have occasional urinary frequency. Timing/Duration: Other Severity/Quality: Moderate Location: LLQ Radiation: No Radiation Activities at Onset: None Associated Symptoms: Denies Symptoms Allergies and Home Medications Allergies Coded Allergies: No Known Drug Allergies (Unverified , 08/28/10) Home Medications Sulfamethoxazole/Trimethoprim 1 Each Tablet, 1 EACH PO BID Prescribed by: DANIE CALLAHAN on 05/13/192007 Patient Home Medication List Home Medication List Reviewed: Yes Review of Systems Review of Systems Constitutional: see HPI EENTM: No Symptoms Reported Respiratory: No Symptoms Reported Cardiovascular: No Symptoms Reported Gastrointestinal: See HPI, Abdominal Pain Genitourinary: No Symptoms Reported Musculoskeletal: no symptoms reported Skin: no symptoms reported Psychiatric/Neurological: No Symptoms Reported Endocrine: No Symptoms Reported Hematologic/Lymphatic: No Symptoms Reported Past Vhacvgv-Mwfxqp-Kgtxge Hx Patient Social History Alcohol Use: Denies Use Recreational Drug Use: No Smoking Status: Never a Smoker 2nd Hand Smoke Exposure: No Recent Hopitalizations: No Physical Abuse: No Sexual Abuse: No Mistreated: No Fear: No Immunizations Up To Date Tetanus Booster (TDap): Unknown PED Vaccines UTD: No Seasonal Allergies Seasonal Allergies: No Past Medical History Surgeries: Yes (HYSTEROSCOPY,D&C, UTERINE ABLATION) Hysterectomy, Tubal Ligation Respiratory: No Cardiac: No Neurological: No Reproductive Disorders: Yes Female Reproductive Disorders: Endometriosis [employer] History: Hysterectomy, Tubal Ligation Genitourinary: No Gastrointestinal: No Musculoskeletal: No Endocrine: No HEENT: No Cancer: No Psychosocial: No Integumentary: No Blood Disorders: Yes (anemia) Physical Exam Vital Signs Vital Signs - First Documented 05/13/19 18:57 Temp 98.0 Pulse 73 Resp 16 B/P (MAP) 120/95 (103) Pulse Ox 99 O2 Delivery Room Air Capillary Refill : Less Than 3 Seconds Height/Weight/BMI Height: 5'8.00" Weight: 177lbs. 0.0oz. 80.139319nz; 26.9 BMI Method:Stated General Appearance: WD/WN, no apparent distress Respiratory: no respiratory distress, no accessory muscle use Gastrointestinal: normal bowel sounds, soft, tenderness Extremities: normal range of motion, non-tender Neurologic/Psychiatric: alert, normal mood/affect, oriented x 3 Progress/Results/Core Measures Results/Orders Lab Results Laboratory Tests Test 05/13/19 19:01 05/13/19 19:05 Range/Units Urine Color YELLOW Urine Clarity CLEAR Urine pH 7 5-9 Urine Specific [place] 1.005 L 1.016-1.022 Urine Protein NEGATIVE NEGATIVE Urine Glucose (UA) NEGATIVE NEGATIVE Urine Ketones NEGATIVE NEGATIVE Urine Nitrite NEGATIVE NEGATIVE Urine Bilirubin NEGATIVE NEGATIVE Urine Urobilinogen NORMAL NORMAL MG/DL Urine Leukocyte Esterase 3+ H NEGATIVE Urine RBC (Auto) NEGATIVE NEGATIVE Urine RBC NONE /HPF Urine WBC 10-25 H /HPF Urine Squamous Epithelial Cells 5-10 /HPF Urine Crystals NONE /LPF Urine Bacteria FEW H /HPF Urine Casts NONE /LPF Urine Mucus NEGATIVE /LPF Urine Culture Indicated YES White Blood Count 8.3 4.3-11.0 10^3/uL Red Blood Count 4.71 4.35-5.85 10^6/uL Hemoglobin 14.0 11.5-16.0 G/DL Hematocrit 42 35-52 % Mean Corpuscular Volume 88 80-99 FL Mean Corpuscular Hemoglobin 30 25-34 PG Mean Corpuscular Hemoglobin Concent 34 32-36 G/DL Red Cell Distribution Width 13.1 10.0-14.5 % Platelet Count 240 130-400 10^3/uL Mean Platelet Volume 10.6 H 7.4-10.4 FL Neutrophils (%) (Auto) 61 42-75 % Lymphocytes (%) (Auto) 29 12-44 % Monocytes (%) (Auto) 8 0-12 % Eosinophils (%) (Auto) 2 0-10 % Basophils (%) (Auto) 1 0-10 % Neutrophils # (Auto) 5.1 1.8-7.8 X 10^3 Lymphocytes # (Auto) 2.4 1.0-4.0 X 10^3 Monocytes # (Auto) 0.6 0.0-1.0 X 10^3 Eosinophils # (Auto) 0.2 0.0-0.3 10^3/uL Basophils # (Auto) 0.0 0.0-0.1 10^3/uL Sodium Level 141 135-145 MMOL/L Potassium Level 3.9 3.6-5.0 MMOL/L Chloride Level 108 H 98-107 MMOL/L Carbon Dioxide Level 22 21-32 MMOL/L Anion Gap 11 5-14 MMOL/L Blood Urea Nitrogen 12 7-18 MG/DL Creatinine 0.96 0.60-1.30 MG/DL Estimat Glomerular Filtration Rate > 60 BUN/Creatinine Ratio 13 Glucose Level 88 70-105 MG/DL Calcium Level 9.4 8.5-10.1 MG/DL Corrected Calcium 8.5-10.1 MG/DL Total Bilirubin 0.3 0.1-1.0 MG/DL Aspartate Amino Transf (AST/SGOT) 15 5-34 U/L Alanine Aminotransferase (ALT/SGPT) 17 0-55 U/L Alkaline Phosphatase 59 40-136 U/L Total Protein 7.4 6.4-8.2 GM/DL Albumin 4.7 H 3.2-4.5 GM/DL My Orders Orders - DANIE CALLAHAN APRN Cbc With Automated Diff (05/13/19 19:08) Comprehensive Metabolic Panel (05/13/19 19:08) Ua Culture If Indicated (05/13/19 19:08) Ed Iv/Invasive Line Start (05/13/19 19:08) Ketorolac Injection (Toradol Injection) (05/13/19 19:15) Ct Abd/Pelvis Wo(Kidney Stone) (05/13/19 19:08) Ed Iv/Invasive Line Start (05/13/19 19:08) Urine Culture (05/13/19 19:01) Medications Given in ED Current Medications Medications Dose Ordered Sig/Tania Route Start Time Stop Time Status Last Admin Dose Admin Ketorolac Tromethamine 15 mg ONCE ONCE IVP 05/13/19 19:15 05/13/19 19:16 DC 05/13/19 19:19 15 MG Vital Signs/I&O 05/13/19 18:57 Temp 98.0 Pulse 73 Resp 16 B/P (MAP) 120/95 (103) Pulse Ox 99 O2 Delivery Room Air Diagnostic Imaging Diagonstic Imaging: CT Comments NAME: ASHLEY WINSLOW [facility] REC#: [id number] PT STATUS: REG ER : 1970 PHYSICIAN: DANIE CALLAHAN APRN ADMIT DATE: 05/13/19/ER Draft Date of Exam:05/13/19 CT ABD/PELVIS WO(KIDNEY STONE) PROCEDURE: CT urinary tract, rule out kidney stone. TECHNIQUE: Multiple contiguous axial images were obtained through the abdomen and pelvis without the use of intravenous contrast. Auto Exposure Controls were utilized during the CT exam to meet ALARA standards for radiation dose reduction. INDICATION: Left flank and groin pain. Evaluate for urolithiasis. COMPARISON: Prior CT study from 02/21/2018. FINDINGS: The lung bases demonstrate some minimal dependent atelectasis but otherwise are clear. There is no pleural or pericardial effusion. Noncontrast appearance of the liver is unremarkable. Gallbladder nondistended without biliary dilatation or radiodense gallstone. Spleen is normal in size. Pancreas unremarkable. There is no adrenal mass. The kidneys appear nonobstructed without evidence of urolithiasis. There is no hydronephrosis or evidence of a stone within the collecting system. The stomach is unremarkable. There is a duodenal diverticulum. There is no finding of small bowel dilation or abnormal small bowel thickening. There is moderate to large degree of stool within the colon without abnormal colonic thickening. The appendix is normal. There is no finding of free air, free fluid or evidence of abscess. Urinary bladder is nondistended. Patient appears status post hysterectomy. There is no pelvic mass. There is no pathologically enlarged lymph node. There is a fat-containing paraumbilical hernia. There is a lumbar levoscoliosis. No acute or suspicious osseous abnormality demonstrated. IMPRESSION: 1. No CT evidence of an acute inflammatory or obstructive process within the abdomen or pelvis. 2. No evidence of urolithiasis. There is no hydronephrosis. Examination does not exclude urinary tract infection. 3. Previous hysterectomy. 4. No finding of bowel obstruction. The appendix appears normal. There is a moderate to large degree of stool within the colon suggesting constipation. 5. No free fluid, focal inflammation or abscess. 6. Fat-containing paraumbilical hernia. 7. Lumbar levoscoliosis. Dictated on workstation # [id number] Dict: 05/13/191955 Trans: 05/13/192018 [facility] [id number] Interpreted by: MILADY FUNEZ MD Electronically signed by: Departure Impression Primary Impression: LLQ abdominal pain Additional Impression: UTI (urinary tract infection) Qualified Codes: N30.00 - Acute cystitis without hematuria Disposition: HOME, SELF-CARE Condition: Stable Departure-Patient Inst. Decision time for Depature: 20:07 Referrals: [facility] (PCP) Primary Care Physician CHIQUI WHITEHEAD APRN (Family) Primary Care Physician Patient Instructions: Acute Pelvic Pain, Urinary Tract Infection, Adult (DC) Add. Discharge Instructions: 1.. Antibiotics as directed 2. Follow-up with Dr. Fleming. Call Wednesday to make an appointment to be seen. All discharge instructions reviewed with patient and/or family. Voiced understanding. Scripts Sulfamethoxazole/Trimethoprim (Bactrim Ds Tablet) 1 Each Tablet 1 EACH PO BID, #10 TAB Prov: DANIE CALLAHAN APRN 05/13/19 DANIE CALLAHAN APRN May 13, 2019 19:16
[2019-05-13 19:17] LABS: BASOPHILS % (AUTO) 1 % (0-10); EOSINOPHILS # (AUTO) 0.2 10^3/uL (0.0-0.3); EOSINOPHILS % (AUTO) 2 % (0-10); HEMATOCRIT 42 % (35-52); LYMPHOCYTES # (AUTO) 2.4 X 10^3 (1.0-4.0); LYMPHOCYTES % (AUTO) 29 % (12-44); MEAN CORPUSCULAR HEMOGLOBIN 30 PG (25-34); MEAN CORPUSCULAR HGB CONC 34 G/DL (32-36); MEAN CORPUSCULAR VOLUME 88 FL (80-99); MEAN PLATELET VOLUME 10.6 FL (7.4-10.4); MONOCYTES # (AUTO) 0.6 X 10^3 (0.0-1.0); MONOCYTES % (AUTO) 8 % (0-12); NEUTROPHILS # (AUTO) 5.1 X 10^3 (1.8-7.8); NEUTROPHILS % (AUTO) 61 % (42-75); PLATELET COUNT 240 10^3/uL (130-400); RED CELL DISTRIBUTION WIDTH 13.1 % (10.0-14.5); WHITE BLOOD COUNT 8.3 10^3/uL (4.3-11.0)
[2019-05-13 19:18] LABS: BILIRUBIN,URINE NEGATIVE (NEGATIVE); CLARITY,URINE CLEAR; COLOR,URINE YELLOW; GLUCOSE, URINE (UA) NEGATIVE (NEGATIVE); KETONES,URINE NEGATIVE (NEGATIVE); LEUKOCYTE ESTERASE ,URINE 3+ (NEGATIVE); NITRITE,URINE NEGATIVE (NEGATIVE); PH,URINE 7 (5-9); PROTEIN,URINE NEGATIVE (NEGATIVE); UROBILINOGEN,URINE NORMAL (NORMAL)
[2019-05-13 19:27] LABS: BACTERIA,URINE FEW /HPF
[2019-05-13 19:45] LABS: ALANINE AMINOTRANSFERASE 17 U/L (0-55); ALBUMIN 4.7 GM/DL (3.2-4.5); ALKALINE PHOSPHATASE 59 U/L (40-136); BILIRUBIN,TOTAL 0.3 MG/DL (0.1-1.0); BUN/CREATININE RATIO 13; CALCIUM 9.4 MG/DL (8.5-10.1); CARBON DIOXIDE 22 MMOL/L (21-32); CHLORIDE 108 MMOL/L (98-107); CREATININE SERUM 0.96 MG/DL (0.60-1.30); GFR ESTIMATED > 60; GLUCOSE 88 MG/DL (70-105); POTASSIUM 3.9 MMOL/L (3.6-5.0); SODIUM 141 MMOL/L (135-145); TOTAL PROTEIN 7.4 GM/DL (6.4-8.2)
[2019-05-13] MEDS ORDERED: SULF1TAB35 PO (20:08)
--- NOTE | 2019-05-13 20:19 | Diagnostic Imaging Report ---
PROCEDURE: CT urinary tract, rule out kidney stone. TECHNIQUE: Multiple contiguous axial images were obtained through the abdomen and pelvis without the use of intravenous contrast. Auto Exposure Controls were utilized during the CT exam to meet ALARA standards for radiation dose reduction. INDICATION: Left flank and groin pain. Evaluate for urolithiasis. COMPARISON: Prior CT study from 02/21/2018. FINDINGS: The lung bases demonstrate some minimal dependent atelectasis but otherwise are clear. There is no pleural or pericardial effusion. Noncontrast appearance of the liver is unremarkable. Gallbladder nondistended without biliary dilatation or radiodense gallstone. Spleen is normal in size. Pancreas unremarkable. There is no adrenal mass. The kidneys appear nonobstructed without evidence of urolithiasis. There is no hydronephrosis or evidence of a stone within the collecting system. The stomach is unremarkable. There is a duodenal diverticulum. There is no finding of small bowel dilation or abnormal small bowel thickening. There is moderate to large degree of stool within the colon without abnormal colonic thickening. The appendix is normal. There is no finding of free air, free fluid or evidence of abscess. Urinary bladder is nondistended. Patient appears status post hysterectomy. There is no pelvic mass. There is no pathologically enlarged lymph node. There is a fat-containing paraumbilical hernia. There is a lumbar levoscoliosis. No acute or suspicious osseous abnormality demonstrated. IMPRESSION: 1. No CT evidence of an acute inflammatory or obstructive process within the abdomen or pelvis. 2. No evidence of urolithiasis. There is no hydronephrosis. Examination does not exclude urinary tract infection. 3. Previous hysterectomy. 4. No finding of bowel obstruction. The appendix appears normal. There is a moderate to large degree of stool within the colon suggesting constipation. 5. No free fluid, focal inflammation or abscess. 6. Fat-containing paraumbilical hernia. 7. Lumbar levoscoliosis. Dictated by: Dictated on workstation # [id number]
[2019-05-13 20:29] VITALS: BP 120/95
== END 2019-05-13 20:29 | disposition home or self-care (01) ==
LOC: EDUNIT# 18:53 → ER 18:55
DX: N39.0 Urinary tract infection, site not specified (principal); Z90.710 Acquired absence of both cervix and uterus; Z98.51 Tubal ligation status
CPT/HCPCS: 36415; 74176; 80053; 81000; 85025; 87088; 96374

== ENCOUNTER → 2019-07-13 | Outpatient (CLI) | payer BC ==
[~2019-07-13] MED LIST changes: +SULF1TAB35 PO; +THYR130T5
--- NOTE | 2019-07-13 17:56 | Diagnostic Imaging Report ---
EXAMINATION: Digital mammogram bilateral screening. The current study was also evaluated with a Computer Aided Detection (CAD) system. 3-D tomosynthesis was also performed and reviewed. INDICATION: Screening. This study was compared to the prior exams of 07/12/2018, 07/06/2017, and 03/10/2016. At this time, there are no current complaints. FINDINGS: The fibroglandular tissue in both breasts is heterogeneously dense. This does limit the sensitivity of this exam. Overall, there does not appear to have been any significant change when compared to the prior study. No primary or secondary sign of malignancy is noted. 3D tomographic images fail to show any sign of malignancy. IMPRESSION: There is no radiographic evidence for malignancy. ACR BI-RADS Category 1: Negative. Result letter will be mailed to the patient. Note: At least 10% of breast cancer is not imaged by mammography. Dictated by: Dictated on workstation # [id number]
== END ==
LOC: RAD 09:49
PROVIDERS: ATTEND Nurse Practitioner Primary Care
DX: Z12.31 Encounter for screening mammogram for malignant neoplasm of breast (principal)
CPT/HCPCS: 77067

== ENCOUNTER → 2020-07-15 | Outpatient (CLI) | payer OTHER ==
[~2020-07-15] MED LIST changes: +ASCO250T16 PO; -C250T PO; -OXYC-465 PO; +OXYC-556 PO
--- NOTE | 2020-07-15 11:35 | Diagnostic Imaging Report ---
INDICATION: Routine screening. Comparison is made with prior mammogram 07/13/2019 and 07/12/2018. 2-D and 3-D bilateral screening mammography was performed with CAD. Both breasts are heterogeneously dense, limiting the sensitivity of mammography. The parenchymal pattern is stable. No mass or malignant-appearing microcalcifications are seen. Axillae are unremarkable. IMPRESSION: BI-RADS Category 1 No mammographic features suspicious for malignancy are identified. ACR BI-RADS Category 1: Negative. Result letter will be mailed to the patient. Note: At least 10% of breast cancer is not imaged by mammography. Dictated by: Dictated on workstation # [id number]
== END ==
LOC: RAD 08:15
PROVIDERS: ATTEND Obstetrics & Gynecology
DX: Z12.31 Encounter for screening mammogram for malignant neoplasm of breast (principal)
CPT/HCPCS: 77063; 77067

== ENCOUNTER 2020-12-05 19:50 | Emergency (ER) | payer OTHER ==
[~2020-12-05] VITALS: Ht 172.7 cm; Wt 99.8 kg
[~2020-12-05 19:50] MED LIST changes: +HYDR-3817 PO
--- NOTE | 2020-12-05 20:19 | ED Abdominal Pain ---
General Chief Complaint: Abdominal/GI Problems Stated Complaint: LLQ PAIN History of Present Illness Date Seen by Provider: Dec 05, 2020 Time Seen by Provider: 20:00 Initial Comments Patient is a 50-year-old female who presents to the emergency department today with a chief complaint of left lower groin pain. Patient states she has had this pain for about 2 weeks. It is worse that she is standing up and moving around and feels better when she is lying down. Patient states that she had a ventral abdominal hernia repair in mid October. She states that this has seemed to heal fairly well. She still has some significant discomfort around the scar. Patient states the pain in her left lower quadrant/left pelvis has slowly developed. She denies any heavy lifting or straining. She states she feels like she is "swollen". She has taken a few doses of Tylenol without much relief of symptoms. She denies nausea, vomiting, diarrhea. Normal bowel movement this morning. No urinary difficulties. She denies black or bloody stools. No recent fevers or chills. No rashes in the area. The area is not significantly tender to palpation. All other review of systems reviewed and negative except as stated. Timing/Duration: 1 Week Severity/Quality: Cramping Location: LLQ Radiation: No Radiation Activities at Onset: None Modifying Factors: Improves With Lying down Associated Symptoms: Denies Symptoms Allergies and Home Medications Allergies Coded Allergies: No Known Drug Allergies (Unverified , 08/28/10) Home Medications Hydrocodone/Acetaminophen 1 Each Tablet, 1 EACH PO Q4H Prescribed by: HECTOR EVANS on 10/20/20 1313 Patient Home Medication List Home Medication List Reviewed: Yes Review of Systems Review of Systems Constitutional: see HPI EENTM: No Symptoms Reported Respiratory: No Symptoms Reported Cardiovascular: No Symptoms Reported Gastrointestinal: Abdominal Pain Genitourinary: No Symptoms Reported Musculoskeletal: no symptoms reported Skin: no symptoms reported All Other Systems Reviewed Negative Unless Noted: Yes Past Ugtkjuv-Gglyrb-Zzslyq Hx Patient Social History Drug of Choice: DENIES 2nd Hand Smoke Exposure: No Recent Hopitalizations: No Immunizations Up To Date Tetanus Booster (TDap): Unknown PED Vaccines UTD: No Seasonal Allergies Seasonal Allergies: No Past Medical History Surgeries: Yes (HYSTEROSCOPY,D&C, UTERINE ABLATION) Hysterectomy, Oophorectomy, Tubal Ligation Respiratory: No Currently Using CPAP: No Currently Using BIPAP: No Cardiac: No Neurological: No Reproductive Disorders: Yes Female Reproductive Disorders: Menstrual Problems, Endometriosis [employer]MI[employer] History: Hysterectomy, Tubal Ligation Genitourinary: No Gastrointestinal: No Musculoskeletal: No Endocrine: No HEENT: No Cancer: No Psychosocial: No Integumentary: No Blood Disorders: Yes (anemia) Family Medical History ADDITIONAL SURGICAL HISTORY: -MULTIPLE GYNECOLOGICAL PROCEDURES -DIAGNOSTIC LAPAROSCOPIES -UTERINE ABLATION -BILATERAL TUBAL LIGATION -HYSTEROSCOPY -D&C WITH DIAGNOSTIC LAPAROSCOPY 04/[address] ALMONTE -LAPAROSCOPIC HYSTERECTOMY AND LYSIS OF ADHESIONS 11/[address] JIMENEZ -BILATERAL SALPINGO-OOPHORECTOMY AND DESTRUCTION OF ENDOMETRIAL IMPLANTS 03/[address] JIMENEZ. Physical Exam Vital Signs Capillary Refill : Height/Weight/BMI Height: 5'8.00" Weight: 200lbs. 0.0oz. 90.282072bv; 35.66 BMI Method:Stated General Appearance: WD/WN, no apparent distress Respiratory: lungs clear, normal breath sounds, no respiratory distress, no accessory muscle use Cardiovascular: regular rate, rhythm Gastrointestinal: soft, tenderness (Tenderness around the surgical scar site in the ventral infra umbilical region. Slight induration noted over the scar no erythema; patient has no reproducible tenderness in the area of concern in the left lower quadrant/just above the left inguinal canal. No palpable abdominal wall defect with the patient both lying down and standing.; I did not appreciate swelling in the area) Extremities: normal inspection, no pedal edema Neurologic/Psychiatric: alert, normal mood/affect, oriented x 3 Skin: normal color, warm/dry Progress/Results/Core Measures Progress Progress Note : Time: 20:17 Progress Note 50-year-old female presents with a chief complaint of left lower quadrant abdominal pain. Evaluation today includes a physical exam. We will schedule the patient for an abdominal survey ultrasound to try and evaluate the area of concern. Patient has no clinical or objective findings to warrant further studies from the emergency department at this time. Vital signs are stable. Exam is benign. Patient has no other associated symptoms. Will be discharged home with conservative management, recommended ibuprofen or Aleve with food as needed for pain. Return precautions given. Patient verbalized understanding all questions are sought and answered. Patient is stable for discharge. Departure Impression Primary Impression: Abdominal pain Qualified Codes: R10.32 - Left lower quadrant pain Disposition: 01 HOME, SELF-CARE Condition: Stable Departure-Patient Inst. Decision time for Depature: 20:18 Referrals: [facility] (PCP/Family) Primary Care Physician DARRYL STANTON BRETT D DO Patient Instructions: Abdominal Pain, Adult ED Add. Discharge Instructions: Drink plenty of fluids to stay well-hydrated. Take sezq-zwn-aaxmtby Aleve, 2 pills, with food twice daily as needed for pain. You can also take yeho-rbo-lgfqrtt ibuprofen, 3 pills which is 600 mg, with food every 6-8 hours as needed for pain. Do not take ibuprofen and Aleve together. Follow-up with an abdominal ultrasound with focus on the area of concern. Return to the emergency room for increased pain especially associated with fever, vomiting or any other emergent concerning symptoms. Please follow-up with [facility] as well. I have given you contact information for our other 2 surgeons, Dr. Malcolm and Dr. Stanton. If you do have a hernia you can follow-up with either of these surgeons. CASS MCCONNELL MD Dec 05, 2020 20:18
[2020-12-05 20:30] VITALS: BP 144/89
[2020-12-05] MEDS ORDERED: NAPROXEN 250 MG (NAPROSYN) TABLET PO ONE (20:30)
== END 2020-12-05 20:36 | disposition home or self-care (01) ==
LOC: EDUNIT# 19:50 → ER 19:51
DX: R10.32 Left lower quadrant pain (principal)
CPT/HCPCS: 99283

== ENCOUNTER → 2020-12-10 | Outpatient (CLI) | payer OTHER ==
--- NOTE | 2020-12-10 10:10 | Diagnostic Imaging Report ---
PROCEDURE: US Abdomen, limited. TECHNIQUE: Multiple realtime grayscale images were obtained over the abdomen in various projections. INDICATION: Left lower quadrant abdominal pain. FINDINGS: Targeted ultrasound in the right lower quadrant in the area of pain shows intact rectus muscle. No evidence of abdominal hernia in the lower region. Comparison with CT scan from 10/19/2020 did show a midline ventral hernia just below the umbilicus at that time which contains some incarcerated bowel loops. IMPRESSION: No evidence of hernia with targeted ultrasound of the left lower abdominal wall. Dictated by: Dictated on workstation # [id number]
== END ==
LOC: RAD 08:15
PROVIDERS: ATTEND Emergency Medicine
DX: R10.32 Left lower quadrant pain (principal)
CPT/HCPCS: 76705

== ENCOUNTER → 2021-08-20 | Outpatient (CLI) | payer OTHER ==
[~2021-08-20] MED LIST changes: -SULF1TAB35 PO; +SULF1TAB38 PO
--- NOTE | 2021-08-20 13:17 | Diagnostic Imaging Report ---
Indication: Routine screening. Comparison is made with prior mammogram from 07/15/2020 and 07/13/2019. 2-D and 3-D bilateral screening mammography was performed with CAD. Both breasts are heterogeneously dense, limiting the sensitivity of mammography. The left breast is unremarkable. The right breast does show a focal density in the outer aspect at mid to posterior depth. Additional views are recommended. No malignant-appearing microcalcifications are seen. IMPRESSION: BI-RADS 0 Right breast density. Additional views including spot compression views, rolled CC views and 90 degree lateral views are recommended. ACR BI-RADS Category 0: Incomplete. (Needs additional imaging evaluation). Result letter will be mailed to the patient. Note: At least 10% of breast cancer is not imaged by mammography. Dictated by: Dictated on workstation # [id number]
== END ==
LOC: RAD 09:50
PROVIDERS: ATTEND Family Medicine
DX: Z12.31 Encounter for screening mammogram for malignant neoplasm of breast (principal)
CPT/HCPCS: 77063; 77067

== ENCOUNTER → 2021-08-27 | Outpatient (CLI) | payer OTHER ==
--- NOTE | 2021-08-27 13:14 | Diagnostic Imaging Report ---
Indication: Right breast density. Patient presents for additional views. Comparison is made with screening study from 08/20/2021. Unilateral right 2-D and 3-D diagnostic mammography was performed. This included spot compression CC, rolled CC,, spot compression ML and conventional 90 degree lateral views. There is some slightly persistent density in the outer right breast best seen on the spot compression CC view. It is difficult to locate with certainty on the MLO view but may be inferiorly located. Further evaluation with ultrasound is recommended. No suspicious microcalcifications are seen. IMPRESSION: BI-RADS 0 Persistent right breast density after additional views. Further evaluation with ultrasound is recommended and will be performed today. ACR BI-RADS Category 0: Incomplete. (Needs additional imaging evaluation). Result letter will be mailed to the patient. Note: At least 10% of breast cancer is not imaged by mammography. Dictated by: Dictated on workstation # [id number]
--- NOTE | 2021-08-27 15:41 | Diagnostic Imaging Report ---
INDICATION: Right breast density. This study is performed for further evaluation. TECHNIQUE: Sonographic interrogation of the outer right breast was performed. FINDINGS: There is a hypoechoic nodule at the 9 o'clock location 6-7 cm from the nipple measuring 6 mm x 3 mm x 3 mm. No posterior acoustic shadowing is seen. No internal vascularity is present. This may represent a small cyst. There is a small hypoechoic nodule at the 10 o'clock location 6 to 7 cm from the nipple measuring 4 mm x 4 mm x 3 mm. No internal vascularity is seen. No shadowing is detected. A second slightly lobulated hypoechoic nodule at the 10 o'clock location 6 to 7 cm from the nipple is noted measuring 6 mm x 4 mm x 5 mm. No internal vascularity is seen. No posterior acoustic shadowing is identified. No other abnormalities are seen. IMPRESSION: There are 3 hypoechoic nodules at the 9 and 10 o'clock locations of the right breast 6-7 cm from the nipple. One of these likely accounts for the mammographic density. These have fairly benign features and may represent cysts. Even so, a followup right mammogram and right breast ultrasound in 6 months are recommended to show continued stability. ACR BI-RADS Category 3: Probably benign findings. Result letter will be mailed to the patient. Note: At least 10% of breast cancer is not imaged by mammography. Dictated by: Dictated on workstation # [id number]
== END ==
LOC: RAD 12:45
PROVIDERS: ATTEND Family Medicine
DX: N63.11 Unspecified lump in the right breast, upper outer quadrant (principal); N63.15 Unspecified lump in the right breast, overlapping quadrants
CPT/HCPCS: 76642; 77065; G0279